=== PATIENT | female | born 1980 | race Caucasian/White ===

== ENCOUNTER 2018-03-23 10:21 | Observation (INO) | payer OTHER ==
[~2018-03-23] VITALS: Ht 157.5 cm; Wt 64.0 kg
--- NOTE | 2018-03-23 10:21 | NUR ---
PT TO ROOM 10 VIA WC. ABLE TO STAND AND TRANSFER SELF.
--- NOTE | 2018-03-23 10:43 | NUR ---
PT REPORTS LOSING HAIR FOR PAST MONTH AND FULLNESS IN HER THROAT. REQUESTS TESTING FOR THYROID PROBLEMS. MD BARRERA
--- NOTE | 2018-03-23 10:47 | NUR ---
PT RESTING IV ACCESS OBTAINED AND LABWORK DRAWN WITHOUT INCIDENT, FAMNILY MEMBER AT BEDSIDE, CALL NELSON WITHIN REACH
--- NOTE | 2018-03-23 10:52 | NUR ---
AMBULATED TO BATHROOM WITH STEADY GAIT, CUP PROVIDED FOR URINE SPECIMEN,
[2018-03-23 10:56] LABS: HEMATOCRIT 40.4 % (37.0-47.0); HEMOGLOBIN 13.7 g/dl (12.0-16.0); IMMATURE GRANULOCYTES 0.3 % (0.0-5.0); MEAN CELL VOLUME 89.2 fL CALC (80.0-100.0); MEAN CORPUSCULAR HGB 30.2 pG CALC (26.0-32.0); MEAN CORPUSCULAR HGB CONC 33.9 g/L CALC (32.0-36.0); NEUT# 4.79 thou/uL (2.00-7.15); RED BLOOD COUNT 4.53 mill/uL (4.20-5.60)
[2018-03-23 11:17] LABS: ALKALINE PHOSPHATASE 52 u/l (38-126); ANION GAP 13 (6-22 (CALC)); BILIRUBIN, TOTAL 0.3 mg/dL (0.0-1.4); BUN 11 mg/dL (7-17); BUN/CREATININE RATIO 14 (12-20 (CALC)); CARBON DIOXIDE 24 mmol/l (22-30); CHLORIDE 106 mmol/l (95-108); CREATININE 0.8 mg/dL (0.5-1.0); GFR > 60 ML/MIN (>=60 (CALC)); GFR FOR AFR.AMER. > 60 ML/MIN (>=60 (CALC)); POTASSIUM 3.7 mmol/l (3.5-5.1); SGOT/AST 22 u/l (14-36); SODIUM 140 mmol/l (137-146)
--- NOTE | 2018-03-23 11:28 | NUR ---
MEDICATED FOR C/O FRONTAL THROBBING HEADACHE. PT STATES SHE GETS HEADACHES OFTEN. C/O PROGRESSIVE "FULL FEELING DOWN IN MY THROAT" FOR ABOUT A WEEK. RESP EVEN AND UNLABORED, O2 SAT 100% ON RA. NO SWELLING TO TONGUE OR THROAT NOTED.
[2018-03-23 11:29] LABS: MYOGLOBIN 26 ng/mL (0 - 62)
[2018-03-23 11:48] LABS: TSH, 3RD GENERATION 0.74 uIU/mL (0.47 - 4.68)
--- NOTE | 2018-03-23 12:04 | NUR ---
NO RELIEF WITH MEDICATION FOR HEADACHE, WILL NOTIFY
--- NOTE | 2018-03-23 12:58 | NUR ---
PT COMPLAINS OF NAUSEA, MD AWARE AND AT BEDSIDE
--- NOTE | 2018-03-23 13:23 | NUR ---
STREP SWAB COMPLETED ORDERED.
--- NOTE | 2018-03-23 14:58 | NUR ---
REPORT CALLED TO DELBERT ABBASI ON MED SURG
--- NOTE | 2018-03-23 14:58 | NUR ---
PT CAME FROM ER VIA [facility]. STEPHANIE IN ROOM TO OBTAIN VS. SAFETY PRECAUTIONS REINFORCED AND CALL LIGHT IN REACH.
--- NOTE | 2018-03-23 15:08 | NUR ---
PT TRANSFERRED TO MED SURG ROOM 262 VIA WHEELCHAIR TELE BOX 0350 ASSIGNED AND PLACED ON PT.
--- NOTE | 2018-03-23 15:50 | NUR ---
DR. BAZAN AT BEDSIDE TO ASSESS PT. ORDERS RECEIVED. CALL LIGHT IN REACH.
[2018-03-23 16:37] VITALS: BP 103/69
--- NOTE | 2018-03-23 17:50 | NUR ---
ASSESSMENT DONE TELE IN PLACE. PT STATED HEADACHE 07/06 BUT REFUSED PAIN MEDICATION AT THIS TIME. PT IS A&O X3. #20 LAC THAT APPEAR HEALTHY. PT DENIES NEEDS AT THIS TIME. CALL LIGHT IN REACH.
[2018-03-23 19:18] VITALS: BP 99/63
--- NOTE | 2018-03-23 21:58 | NUR ---
DR BAZAN CALLED PT C/O HEADACHE. ORDERS RECIEVED FOR MOTRIN 800MG Q6HR PRN.
[2018-03-24 01:04] VITALS: BP 92/54
[2018-03-24 04:10] VITALS: BP 90/48
[2018-03-24 05:45] LABS: HEMATOCRIT 37.1 % (37.0-47.0); HEMOGLOBIN 12.7 g/dl (12.0-16.0); IMMATURE GRANULOCYTES 0.4 % (0.0-5.0); MEAN CELL VOLUME 88.5 fL CALC (80.0-100.0); MEAN CORPUSCULAR HGB 30.3 pG CALC (26.0-32.0); MEAN CORPUSCULAR HGB CONC 34.2 g/L CALC (32.0-36.0); NEUT# 9.92 thou/uL (2.00-7.15); RED BLOOD COUNT 4.19 mill/uL (4.20-5.60); RED CELL DISTRI WIDTH 12.9 % (11.5-15.5)
[2018-03-24 06:15] LABS: ALBUMIN 3.6 g/dL (3.2-5.0); ALKALINE PHOSPHATASE 55 u/l (38-126); ANION GAP 12 (6-22 (CALC)); BILIRUBIN, TOTAL 0.2 mg/dL (0.0-1.4); BUN 11 mg/dL (7-17); BUN/CREATININE RATIO 17 (12-20 (CALC)); CARBON DIOXIDE 24 mmol/l (22-30); CHLORIDE 107 mmol/l (95-108); CREATININE 0.7 mg/dL (0.5-1.0); GFR > 60 ML/MIN (>=60 (CALC)); GFR FOR AFR.AMER. > 60 ML/MIN (>=60 (CALC)); MAGNESIUM 1.9 mg/dL (1.6-2.3); SGOT/AST 18 u/l (14-36); SODIUM 139 mmol/l (137-146); TOTAL PROTEIN 6.3 g/dL (6.3-8.2)
[2018-03-24 06:32] LABS: CHOLESTEROL HDL RATIO 3.5 (<4.4 (CALC))
[2018-03-24 08:02] VITALS: BP 105/61
--- NOTE | 2018-03-24 08:12 | NUR ---
REPORT RECEIVED FROM AYLEEN ZUNIGA. PT SITTING UPRIGHT IN BED. REPORTS HEADACHE. MOTRIN PO ADMINISTERED. ORDERED MEDICATIONS REVIEWED. PLAN OF CARE DISCUSSED. PT DENIES THROAT SWELLING/CP. SWALLOWING W/O DIFFICULTY. PT STATES ANTICIPATION OF DISCHARGE. DISCHARGE PROCESS REVIEWED. CALL LIGHT REVIEWED AND IN REACH. PT STATES UNDERSTANDING.
--- NOTE | 2018-03-24 11:35 | NUR ---
DR. BAZAN IN TO SEE PT. DISCHARGE HOME DISCUSSED AND AGREED UPON BY BOTH.
[2018-03-24] MEDS ORDERED: AUGMENTIN875TAB PO (11:37)
--- NOTE | 2018-03-24 12:00 | NUR ---
STAKE SETTER IN ROOM. TEST COMPLETED.
[2018-03-24] MEDS ORDERED: XANAX0.25 MG PO (12:14)
--- NOTE | 2018-03-24 12:32 | NUR ---
Discharge instructions given. Patient verbalizes understanding of same. Discharged in stable condition via Ambulatory to Home with *Other. All belongings sent with pt.
== END 2018-03-24 12:32 | disposition home or self-care (01) | DRG 880 ==
LOC: ED 10:21 → ED-I 12:50 → ED 14:09 → MS2 14:10
PROVIDERS: Emergency Medicine; ADMIT Internal Medicine Nephrology; ATTEND Internal Medicine Nephrology
DX: F41.9 Anxiety disorder, unspecified (principal); J02.9 Acute pharyngitis, unspecified; R73.9 Hyperglycemia, unspecified; Z83.3 Family history of diabetes mellitus
CPT/HCPCS: G0378; Q9967

== ENCOUNTER 2024-03-25 20:22 | Emergency (ER) | payer BC ==
[~2024-03-25] VITALS: Ht 157.5 cm; Wt 61.2 kg
[~2024-03-25 20:22] MED LIST: AUGMENTIN875TAB PO; XANAX0.25 MG PO
[2024-03-25] MEDS ORDERED: BENZONATATE 200 MG/CAP PO ONE (22:15)
[2024-03-25 23:07] VITALS: BP 120/69
[2024-03-26] MEDS ORDERED: BENZONATATE200 MG PO (01:46)
[2024-03-26] MEDS ORDERED: DECADRON4 MG PO (01:46)
== END 2024-03-25 23:07 | disposition home or self-care (01) | DRG 195 ==
LOC: ED 20:22
DX: J10.1 Influenza due to other identified influenza virus with other respiratory manifestations (principal); Z20.822 Contact with and (suspected) exposure to COVID-19

== ENCOUNTER 2024-06-24 20:50 | Emergency (ER) | payer BC ==
[~2024-06-24] VITALS: Ht 157.5 cm; Wt 61.0 kg
[~2024-06-24 20:50] MED LIST changes: +BENZONATATE200 MG PO; +DECADRON4 MG PO
[2024-06-24] MEDS ORDERED: IMITREX50 MG PO (20:56)
[2024-06-24] MEDS ORDERED: [UNRECOGNIZED DRUG - OTHER] PO (20:56)
[2024-06-24] MEDS ORDERED: ASPIRIN 81 MG/TAB PO ONE (21:10)
[2024-06-24] MEDS ORDERED: ACETAMINOPHEN 500 MG TAB PO ONE (21:10)
[2024-06-24] MEDS ORDERED: KETOROLAC TROMETHAMINE 30 MG/ML SDV IV ONE (21:10)
[2024-06-24 21:15] VITALS: BP 119/75
[2024-06-24 21:35] VITALS: BP 105/80
[2024-06-24 21:44] LABS: BASO% 0.4 % (0-3); EOS% 1.9 % (0-8); HEMATOCRIT 38.2 % (37.0-47.0); HEMOGLOBIN 12.9 g/dl (12.0-16.0); IMMATURE GRANULOCYTES 0.1 % (0.0-5.0); LYMPH% 28.7 % (15-41); MEAN CELL VOLUME 84.1 fL CALC (80.0-100.0); MEAN CORPUSCULAR HGB 28.4 pG CALC (26.0-32.0); MEAN CORPUSCULAR HGB CONC 33.8 g/dL CAL (32.0-36.0); MONO% 7.5 % (2-13); NEUT# 4.89 thou/uL (2.00-7.15); NEUT% 61.4 % (42-76); RED BLOOD COUNT 4.54 mill/uL (4.20-5.60); RED CELL DISTRI WIDTH 14.3 % (11.5-15.5)
[2024-06-24 21:59] LABS: ALKALINE PHOSPHATASE 52 u/l (38-126); ANION GAP 12 (6-22 (CALC)); BUN 22 mg/dL (7-17); BUN/CREATININE RATIO 23 (12-20 (CALC)); CARBON DIOXIDE 27 mmol/l (22-30); CHLORIDE 102 mmol/l (95-108); ESTIMATED GFR 71 ML/MIN (>=90 (CALC)); LIPASE 180 u/l (23-300); SODIUM 137 mmol/l (137-146)
[2024-06-24 22:01] LABS: ALBUMIN 4.8 g/dL (3.2-5.0); BILIRUBIN, TOTAL 0.4 mg/dL (0.02-1.3); SGOT/AST 34 u/l (14-36); TOTAL PROTEIN 7.9 g/dL (6.3-8.2)
[2024-06-24 22:05] LABS: ACT PARTIAL THROMBO TIME 25.1 SECONDS (20.0-32.5); D-DIMER 0.92 mg/L (0.19-0.60)
[2024-06-24 22:06] LABS: PROTHROMBIN TIME 10.6 SECONDS (9.0-12.5)
[2024-06-25 00:22] VITALS: BP 105/80
== END 2024-06-25 00:22 | disposition home or self-care (01) | DRG 313 ==
LOC: ED 20:50
PROVIDERS: Family Medicine
DX: R07.89 Other chest pain (principal)
CPT/HCPCS: Q9967